=== PATIENT | male | born 1995 | race African-American/Black ===

== ENCOUNTER 2022-12-13 22:51 | Emergency (ER) | payer MEDICAID, OTHER ==
[~2022-12-13] VITALS: Ht 175.3 cm; Wt 99.8 kg
[2022-12-13 23:05] VITALS: BP 136/99
[2022-12-13] MEDS ORDERED: LACTATED RINGERS 1,000 ML IV ONE (23:30)
[2022-12-13] MEDS ORDERED: ONDANSETRON 4 MG/2 ML (SDV) Z0FRAN IVP ONE (23:30)
[2022-12-13 23:38] LABS: BASOPHILS # (AUTO) 0.1 10^3/uL (0.0-0.1); BASOPHILS % (AUTO) 1 % (0-10); EOSINOPHILS # (AUTO) 0.2 10^3/uL (0.0-0.3); EOSINOPHILS % (AUTO) 2 % (0-10); HEMATOCRIT 47 % (40-54); HEMOGLOBIN 16.2 g/dL (13.3-17.7); LYMPHOCYTES # (AUTO) 2.6 10^3/uL (1.0-4.0); LYMPHOCYTES % (AUTO) 23 % (12-44); MEAN CORPUSCULAR HEMOGLOBIN 30 pg (25-34); MEAN CORPUSCULAR HGB CONC 35 g/dL (32-36); MEAN CORPUSCULAR VOLUME 86 fL (80-99); MEAN PLATELET VOLUME 10.1 fL (9.0-12.2); MONOCYTES # (AUTO) 0.6 10^3/uL (0.0-1.0); MONOCYTES % (AUTO) 6 % (0-12); NEUTROPHILS # (AUTO) 7.8 10^3/uL (1.8-7.8); NEUTROPHILS % (AUTO) 68 % (42-75); PLATELET COUNT 270 10^3/uL (130-400); WHITE BLOOD COUNT 11.3 10^3/uL (4.3-11.0)
[2022-12-13 23:53] LABS: ALBUMIN 4.6 GM/DL (3.2-4.5); CHLORIDE 106 MMOL/L (98-107); SODIUM 140 MMOL/L (135-145)
[2022-12-13 23:54] LABS: CALCIUM 9.7 MG/DL (8.5-10.1)
[2022-12-13 23:55] LABS: GLUCOSE 103 MG/DL (70-105); TOTAL PROTEIN 7.7 GM/DL (6.4-8.2)
[2022-12-13 23:56] LABS: CARBON DIOXIDE 21 MMOL/L (21-32)
[2022-12-13 23:57] LABS: BILIRUBIN,TOTAL 0.4 MG/DL (0.1-1.0)
[2022-12-13 23:59] LABS: ALKALINE PHOSPHATASE 63 U/L (40-136); CREATININE SERUM 1.02 MG/DL (0.60-1.30); GFR ESTIMATED 102
[2022-12-14] LABS: BUN/CREATININE RATIO 14
[2022-12-14 00:02] LABS: ALANINE AMINOTRANSFERASE 66 U/L (0-55)
[2022-12-14 00:03] LABS: MAGNESIUM 1.7 MG/DL (1.6-2.4)
[2022-12-14 00:04] LABS: LIPASE 19 U/L (8-78)
== END 2022-12-14 01:20 | disposition left against medical advice (07) ==
LOC: ER 22:54
DX: R10.9 Unspecified abdominal pain (principal); R11.10 Vomiting, unspecified
CPT/HCPCS: 36415; 80053; 83690; 83735; 85025

== ENCOUNTER 2023-03-30 03:43 | Emergency (ER) | payer MEDICAID ==
[2023-03-30] MEDS ORDERED: NS IV 1000 ML 1,000 ML IV STA (04:13)
[2023-03-30] MEDS ORDERED: fentaNYL INJECTION 100 MCG/2 ML VIAL IVP STA (04:13)
[2023-03-30] MEDS ORDERED: PANTOPRAZOLE INJECTION 40 MG VIAL IV ONE (04:15)
[2023-03-30] MEDS ORDERED: ONDANSETRON INJECTION 4 MG/2 ML (SDV) IVP ONE (04:15)
--- NOTE | 2023-03-30 04:18 | ED Abdominal Pain ---
General Chief Complaint: Abdominal/GI Problems Stated Complaint: VOMITING Source of Information: Patient Exam Limitations: No Limitations (MIGUELITO PEPPER MD) History of Present Illness Date Seen by Provider: Mar 30, 2023 Time Seen by Provider: 04:04 Initial Comments Here with report of nausea and vomiting after eating [employer] tonight. Has history of similar in the past and usually gets some Zofran and maybe some pain medicines or IV fluid and usually does better. He has moved here from [place]. Significant other reports that he had some swelling in his abdomen tonight that he typically gets but she actually noticed it tonight. He reports epigastric pain. He has yellow clear fluid that he is vomiting about every 5 to 10 minutes. He does drink occasionally and smokes cigarettes and occasionally smokes marijuana. Denies any significant allergies. Started 11 PM Timing/Duration: 4-6 Hours Severity/Quality: Moderate Location: Epigastric Radiation: No Radiation Activities at Onset: Rest Modifying Factors: Worsens With Eating Associated Symptoms: No Back Pain, No Chest Pain, No Fever/Chills; Nausea/Vomiting, Swelling/Mass in Abdomen; No Weakness (MIGUELITO PEPPER MD) Allergies and Home Medications Allergies Coded Allergies: No Known Drug Allergies (Unverified , 12/13/22) Patient Home Medication List Home Medication List Reviewed: Yes (MIGUELITO PEPPER MD) Omeprazole (Omeprazole) 20 Mg Capsule.dr, 20 MG PO DAILY Prescribed by: MIGUELITO PEPPER on 03/30/23 0608 Ondansetron (Ondansetron Odt) 4 Mg Tab.rapdis, 4 MG PO Q6H PRN for NAUSEA/VOMITING Prescribed by: MIGUELITO PEPPER on 03/30/23 0608 Review of Systems Review of Systems Constitutional: see HPI; No chills, No fever EENTM: No Symptoms Reported Respiratory: Denies Cough, Denies Shortness of Air Cardiovascular: Denies Chest Pain Gastrointestinal: Abdominal Pain, Nausea, Vomiting Musculoskeletal: no symptoms reported Psychiatric/Neurological: No Symptoms Reported (MIGUELITO PEPPER MD) Past Keoqhoi-Hpgoxq-Gjzipz Hx Patient Social History Tobacco Use?: Yes Tobacco type used: Cigarettes Substance use?: Yes Substance type: Marijuana Alcohol Use?: Yes (MIGUELITO PEPPER MD) Immunizations Up To Date First/Initial COVID19 Vaccinat: NA (MIGUELITO PEPPER MD) Past Medical History Surgery/Hospitalization HX: ASTHMA, STOMACH ULCER, THROAT SX. (MIGUELITO PEPPER MD) Physical Exam Vital Signs Vital Signs - First Documented 03/30/23 03:57 Temp 36.0 Pulse 84 Resp 16 B/P (MAP) 147/103 (118) Pulse Ox 93 O2 Delivery Room Air (SHARYN GARDNER MD) Vital Signs Capillary Refill : (MIGUELITO PEPPER MD) Height/Weight/BMI Height: '" Weight: lbs. oz. kg; 32.00 BMI Method: General Appearance: WD/WN, no apparent distress HEENT: PERRL/EOMI, pharynx normal Neck: full range of motion, supple Respiratory: lungs clear, normal breath sounds Cardiovascular: regular rate, rhythm, no murmur Gastrointestinal: non tender, soft, other (No obvious mass or swelling noted on exam) Back: normal inspection, no CVA tenderness, no vertebral tenderness Neurologic/Psychiatric: alert, oriented x 3 Skin: normal color, warm/dry (MIGUELITO PEPPER MD) Progress/Results/Core Measures Results/Orders Lab Results Laboratory Tests Test 03/30/23 05:13 03/30/23 05:47 Range/Units Sodium Level 141 135-145 MMOL/L Potassium Level 4.5 3.6-5.0 MMOL/L Chloride Level 111 H 98-107 MMOL/L Carbon Dioxide Level 17 L 21-32 MMOL/L Anion Gap 13 5-14 MMOL/L Blood Urea Nitrogen 9 7-18 MG/DL Creatinine 1.09 0.60-1.30 MG/DL Estimat Glomerular Filtration Rate 94 BUN/Creatinine Ratio 8 Glucose Level 108 H 70-105 MG/DL Calcium Level 9.0 8.5-10.1 MG/DL Corrected Calcium 8.8 8.5-10.1 MG/DL Total Bilirubin 0.4 0.1-1.0 MG/DL Aspartate Amino Transf (AST/SGOT) 58 H 5-34 U/L Alanine Aminotransferase (ALT/SGPT) 101 H 0-55 U/L Alkaline Phosphatase 58 40-136 U/L Total Protein 7.7 6.4-8.2 GM/DL Albumin 4.3 3.2-4.5 GM/DL Lipase 26 8-78 U/L White Blood Count 7.0 4.3-11.0 10^3/uL Red Blood Count 5.26 4.30-5.52 10^6/uL Hemoglobin 14.8 13.3-17.7 g/dL Hematocrit 45 40-54 % Mean Corpuscular Volume 85 80-99 fL Mean Corpuscular Hemoglobin 28 25-34 pg Mean Corpuscular Hemoglobin Concent 33 32-36 g/dL Red Cell Distribution Width 13.8 10.0-14.5 % Platelet Count 222 130-400 10^3/uL Mean Platelet Volume 10.9 9.0-12.2 fL Immature Granulocyte % (Auto) 0 % Neutrophils (%) (Auto) 71 42-75 % Lymphocytes (%) (Auto) 22 12-44 % Monocytes (%) (Auto) 5 0-12 % Eosinophils (%) (Auto) 1 0-10 % Basophils (%) (Auto) 1 0-10 % Neutrophils # (Auto) 5.0 1.8-7.8 10^3/uL Lymphocytes # (Auto) 1.6 1.0-4.0 10^3/uL Monocytes # (Auto) 0.4 0.0-1.0 10^3/uL Eosinophils # (Auto) 0.1 0.0-0.3 10^3/uL Basophils # (Auto) 0.1 0.0-0.1 10^3/uL Immature Granulocyte # (Auto) 0.0 0.0-0.1 10^3/uL (SHARYN GARDNER MD) Medications Given in ED Current Medications Medications Dose Ordered Sig/Alli Route Start Time Stop Time Status Last Admin Dose Admin Ondansetron HCl 4 mg ONCE ONCE IVP 03/30/23 04:15 03/30/23 04:16 DC 03/30/23 04:39 4 MG Pantoprazole 40 mg ONCE ONCE IV 03/30/23 04:15 03/30/23 04:16 DC 03/30/23 04:39 40 MG (SHARYN GARDNER MD) Vital Signs/I&O 03/30/23 03:57 Temp 36.0 Pulse 84 Resp 16 B/P (MAP) 147/103 (118) Pulse Ox 93 O2 Delivery Room Air (SHARYN GARNDER MD) Progress Progress Note : Progress Note Seen and evaluated. IV, labs including CBC, CMP and lipase ordered. Normal saline 1 L bolus. Zofran 4 mg IV, fentanyl 50 mcg IV and Protonix 40 mg IV ordered. Monitor patient. Differential diagnosis includes electrolyte abnormality, dehydration, pancreatitis, gastritis 0555: CBC resulted and shows critically low platelets and potassium is elevated as well but the patient was a very hard IV stick and required multiple draw attempts to get blood and they ultimately got blood in a pediatric tube. I do believe this is hemolysis and clumping. I was able to redraw blood via ultrasound and we will recheck platelets and potassium and if they are better p atient can be safely discharged home. He is feeling much better currently. (MIGUELITO PEPPER MD) Progress Note : Time: 06:19 Progress Note I have reviewed repeat labs - Platelet count is normal as is potassium. Will discharge patient with Dr Kevin's instructions. (SHARYN GARDNER MD) Departure Impression Primary Impression: Nausea and vomiting Qualified Codes: R11.2 - Nausea with vomiting, unspecified Disposition: 01 HOME, SELF-CARE Condition: Improved Departure-Patient Inst. Decision time for Depature: 06:19 (SHARYN GARDNER MD) Referrals: NO,LOCAL PHYSICIAN (PCP/Family) Primary Care Physician Patient Instructions: Gastritis (DC), Nausea and Vomiting, Adult Add. Discharge Instructions: All discharge instructions reviewed with patient and/or family. Voiced understanding. Take medications as directed. Follow-up with your doctor for recheck and further evaluation. You should also seek referral for upper endoscopy (scope) to evaluate your stomach. You may follow-up with the surgeon listed or of your choosing or through referral. Return for worse pain, fever, vomiting, weakness, breathing problems or other concerns as needed. Scripts Omeprazole (Omeprazole) 20 Mg Capsule. 20 MG PO DAILY for 30 Days, #30 CAP 1 Refill Prov: MIGUELITO PEPPER MD 03/30/23 Ondansetron (Ondansetron Odt) 4 Mg Tab.rapdis 4 MG PO Q6H PRN for NAUSEA/VOMITING, #12 TAB 0 Refills Prov: MIGUELITO PEPPER MD 03/30/23 MIGUELITO PEPPER MD Mar 30, 2023 04:18 SHARYN GARDNER MD Mar 30, 2023 06:19
[2023-03-30 05:46] LABS: ALBUMIN 4.3 GM/DL (3.2-4.5)
[2023-03-30 05:48] LABS: TOTAL PROTEIN 7.7 GM/DL (6.4-8.2)
[2023-03-30 05:50] LABS: BILIRUBIN,TOTAL 0.4 MG/DL (0.1-1.0)
[2023-03-30 05:52] LABS: CREATININE SERUM 1.09 MG/DL (0.60-1.30)
[2023-03-30] MEDS ORDERED: ONDA4TAB11 PO (06:08)
[2023-03-30] MEDS ORDERED: OMEP20CA18 PO (06:08)
[2023-03-30 06:09] LABS: BASOPHILS # (AUTO) 0.1 10^3/uL (0.0-0.1); BASOPHILS % (AUTO) 1 % (0-10); EOSINOPHILS # (AUTO) 0.1 10^3/uL (0.0-0.3); EOSINOPHILS % (AUTO) 1 % (0-10); HEMATOCRIT 45 % (40-54); HEMOGLOBIN 14.8 g/dL (13.3-17.7); LYMPHOCYTES # (AUTO) 1.6 10^3/uL (1.0-4.0); LYMPHOCYTES % (AUTO) 22 % (12-44); MEAN CORPUSCULAR HEMOGLOBIN 28 pg (25-34); MEAN CORPUSCULAR HGB CONC 33 g/dL (32-36); MEAN CORPUSCULAR VOLUME 85 fL (80-99); MEAN PLATELET VOLUME 10.9 fL (9.0-12.2); MONOCYTES # (AUTO) 0.4 10^3/uL (0.0-1.0); MONOCYTES % (AUTO) 5 % (0-12); NEUTROPHILS % (AUTO) 71 % (42-75); PLATELET COUNT 222 10^3/uL (130-400)
[2023-03-30 06:15] LABS: POTASSIUM 4.5 MMOL/L (3.6-5.0)
[2023-03-30 06:36] VITALS: BP 136/89
== END 2023-03-30 06:36 | disposition home or self-care (01) ==
LOC: EDUNIT# 03:43 → ER 03:45
DX: R11.2 Nausea with vomiting, unspecified (principal); F17.210 Nicotine dependence, cigarettes, uncomplicated; Z28.310 Unvaccinated for COVID-19
CPT/HCPCS: 36415; 80053; 83690; 85025

== ENCOUNTER 2023-04-10 10:30 | Emergency (ER) | payer MEDICAID ==
[~2023-04-10] VITALS: Ht 175.2 cm; Wt 110.0 kg
[~2023-04-10 10:30] MED LIST: OMEP20CA18 PO; ONDA4TAB11 PO
[2023-04-10] MEDS ORDERED: LIDOCAINE 2% VISCOUS 15 ML UDC PO ONE (10:45)
[2023-04-10] MEDS ORDERED: KETOROLAC INJ 15 MG/ML VIAL IVP ONE (10:45)
[2023-04-10] MEDS ORDERED: FAMOTIDINE 20 MG TABLET PO STA (10:45)
[2023-04-10] MEDS ORDERED: ANTACID SUSPENSION 30 ML UDC PO ONE (10:45)
--- NOTE | 2023-04-10 10:48 | ED Cardiac General ---
History of Present Illness General Chief Complaint: Chest Pain Stated Complaint: CHEST PAINS | SOB Source: patient Exam Limitations: no limitations History of Present Illness Date Seen by Provider: Apr 10, 2023 Time Seen by Provider: 10:39 Initial Comments 27-year-old male with past medical history of asthma coming in due to left-sided chest wall pain. Its been ongoing constant for roughly 4 hours. It is sharp, worse with a deep breath, nothing really seems to make it better or worse. He has not taken anything for it as of yet. He denies any personal cardiac history, no lower extremity swelling or pain, no history of DVT or PE, no recent surgery, no recent long travel, no family history of blood clots, no family history of early cardiac . Otherwise denying any shortness of breath, wheezing, fever, cough, n/v/d, or any other concerns Allergies and Home Medications Allergies Coded Allergies: No Known Drug Allergies (Unverified , 12/13/22) Patient Home Medication List Home Medication List Reviewed: Yes Omeprazole (Omeprazole) 20 Mg Capsule.dr, 20 MG PO DAILY Prescribed by: MIGUELITO PEPPER on 03/30/23607 Ondansetron (Ondansetron Odt) 4 Mg Tab.rapdis, 4 MG PO Q6H PRN for NAUSEA/V OMITING Prescribed by: MIGUELITO PEPPER on 03/30/23607 Review of Systems Review of Systems Constitutional: No fever EENTM: No Symptoms Reported Respiratory: No Symptoms Reported Cardiovascular: See HPI Gastrointestinal: No Symptoms Reported Genitourinary: No Symptoms Reported Musculoskeletal: no symptoms reported Skin: no symptoms reported Psychiatric/Neurological: No Symptoms Reported Endocrine: No Symptoms Reported Hematologic/Lymphatic: No Symptoms Reported Past Ecblmfl-Tzoxfs-Lntcmp Hx Patient Social History Tobacco Use?: Yes Immunizations Up To Date First/Initial COVID19 Vaccinat: NA Second COVID19 Vaccination Pardeep: NA Third COVID19 Vaccination Date: NA Past Medical History Surgery/Hospitalization HX: ASTHMA, STOMACH ULCER, THROAT SX. Physical Exam Vital Signs Vital Signs - First Documented 04/10/23 10:35 Temp 37.6 Pulse 101 Resp 18 B/P (MAP) 169/109 (129) Pulse Ox 100 Capillary Refill : Height, Weight, BMI Height: '" Weight: lbs. oz. kg; 32.00 BMI Method: General Appearance: No Apparent Distress, WD/WN HEENT: PERRL/EOMI, Normal ENT Inspection, Pharynx Normal Neck: Full Range of Motion, Normal Inspection, Non Tender, Supple Respiratory: Chest Non Tender, Lungs Clear, Normal Breath Sounds, No Accessory Muscle Use, No Respiratory Distress Cardiovascular: Regular Rate, Rhythm, No Edema, Normal Peripheral Pulses Gastrointestinal: Normal Bowel Sounds, Non Tender, Soft; No Distended, No Guarding Extremity: Normal Capillary Refill, Normal Inspection, Normal Range of Motion, Non Tender, No Calf Tenderness, No Pedal Edema Neurologic/Psychiatric: Alert, No Motor/Sensory Deficits, Normal Mood/Affect Skin: Normal Color, Warm/Dry Progress/Results/Core Measures Results/Orders Lab Results Laboratory Tests Test 04/10/23 10:40 Range/Units White Blood Count 9.3 4.3-11.0 10^3/uL Red Blood Count 5.26 4.30-5.52 10^6/uL Hemoglobin 14.6 13.3-17.7 g/dL Hematocrit 44 40-54 % Mean Corpuscular Volume 84 80-99 fL Mean Corpuscular Hemoglobin 28 25-34 pg Mean Corpuscular Hemoglobin Concent 33 32-36 g/dL Red Cell Distribution Width 14.1 10.0-14.5 % Platelet Count 237 130-400 10^3/uL Mean Platelet Volume 10.8 9.0-12.2 fL Immature Granulocyte % (Auto) 0 % Neutrophils (%) (Auto) 53 42-75 % Lymphocytes (%) (Auto) 36 12-44 % Monocytes (%) (Auto) 8 0-12 % Eosinophils (%) (Auto) 2 0-10 % Basophils (%) (Auto) 1 0-10 % Neutrophils # (Auto) 5.0 1.8-7.8 10^3/uL Lymphocytes # (Auto) 3.4 1.0-4.0 10^3/uL Monocytes # (Auto) 0.7 0.0-1.0 10^3/uL Eosinophils # (Auto) 0.2 0.0-0.3 10^3/uL Basophils # (Auto) 0.1 0.0-0.1 10^3/uL Immature Granulocyte # (Auto) 0.0 0.0-0.1 10^3/uL Prothrombin Time 13.1 12.2-14.7 SEC INR Comment 1.0 0.8-1.4 Activated Partial Thromboplast Time 27 24-35 SEC Sodium Level 136 135-145 MMOL/L Potassium Level 4.0 3.6-5.0 MMOL/L Chloride Level 104 98-107 MMOL/L Carbon Dioxide Level 23 21-32 MMOL/L Anion Gap 9 5-14 MMOL/L Blood Urea Nitrogen 12 7-18 MG/DL Creatinine 1.27 0.60-1.30 MG/DL Estimat Glomerular Filtration Rate 78 BUN/Creatinine Ratio 9 Glucose Level 94 70-105 MG/DL Calcium Level 9.5 8.5-10.1 MG/DL Corrected Calcium 9.1 8.5-10.1 MG/DL Magnesium Level 1.7 1.6-2.4 MG/DL Total Bilirubin 0.6 0.1-1.0 MG/DL Aspartate Amino Transf (AST/SGOT) 52 H 5-34 U/L Alanine Aminotransferase (ALT/SGPT) 86 H 0-55 U/L Alkaline Phosphatase 64 40-136 U/L Troponin I < 0.028 <0.028 NG/ML Total Protein 7.7 6.4-8.2 GM/DL Albumin 4.5 3.2-4.5 GM/DL Lipase 21 8-78 U/L My Orders Orders - MIYA CLARK MD Ekg Tracing (04/10/23 10:37) Cbc And Automated Diff (04/10/23 10:45) Magnesium (04/10/23 10:45) Chest 1 View, Ap/Pa Only (04/10/23 10:45) Comprehensive Metabolic Panel (04/10/23 10:45) Protime With Inr (04/10/23 10:45) Partial Thromboplastin Time (04/10/23 10:45) O2 (04/10/23 10:45) Monitor-Rhythm Ecg Trace Only (04/10/23 10:45) Ed Iv/Invasive Line Start (04/10/23 10:45) Lipase (04/10/23 10:45) Troponin I [place] (04/10/23 10:45) Ketorolac Injection (Ketorolac Injection (04/10/23 10:45) Lidocaine 2% Viscous 15 Ml (Xylocaine Vi (04/10/23 10:45) Famotidine Tablet (Famotidine Tablet) (04/10/23 10:45) Antacid Suspension (Antacid Suspension (04/10/23 10:45) Medications Given in ED Current Medications Medications Dose Ordered Sig/Alli Route Start Time Stop Time Status Last Admin Dose Admin Al Hydrox/Mg Hydrox/Simethicone 30 ml ONCE ONCE PO 04/10/23 10:45 04/10/23 10:48 DC 04/10/23 11:00 30 ML Ketorolac Tromethamine 15 mg ONCE ONCE IVP 04/10/23 10:45 04/10/23 10:47 DC 04/10/23 11:00 15 MG Lidocaine HCl 15 ml ONCE ONCE PO 04/10/23 10:45 04/10/23 10:48 DC 04/10/23 11:00 15 ML Vital Signs/I&O 04/10/23 10:35 Temp 37.6 Pulse 101 Resp 18 B/P (MAP) 169/109 (129) Pulse Ox 100 Progress Progress Note : Progress Note 27-year-old male coming in due to 4 hours of chest pain. ABCs were intact and vitals were stable on presentation. Physical exam reassuring including clear l heath sounds, normal heart sounds, and he is overall well-appearing. EKG ordered and interpreted by me showing no acute ischemic changes. He is low risk for PE per [place] criteria and is PERC negative. He would be low risk for ACS given age and lack of risk factors, an IV was placed and basic labs were obtained including cardiac biomarkers. His troponin is negative making ACS even less likely. I did a [id number] ultrasound showing no pericardial effusion. Chest x-ray ordered and interpreted by me showing no pneumothorax, no pneumonia, normal cardiac silhouette. Patient received Toradol and a GI cocktail. I believe he stable for discharge with outpatient follow-up. He was sent home with strict return precautions. Initial ECG Impression Date: Apr 10, 2023 Initial ECG Impression Time: 10:39 Initial ECG Rate: 93 Initial ECG Rhythm: Normal Sinus Comment Narrow QRS, normal axis, no significant ST changes or T wave abnormality Diagnostic Imaging Diagonstic Imaging: Xray (chest) Comments [facility], [place] NAME: JEFFERSONKRISTEL MED REC#: [id number] PT STATUS: REG ER : 1995 PHYSICIAN: MIYA CLRAK MD ADMIT DATE: 04/10/23/ER Draft Date of Exam:04/10/23 CHEST 1 VIEW, AP/PA ONLY EXAMINATION: Chest 1 view HISTORY: Chest pain COMPARISON: None available. FINDINGS: The lungs are clear without edema or pneumonia. No pleural effusion or pneumothorax. Heart size is normal. IMPRESSION: 1. Clear lungs. Dictated on workstation # [id number] Dict: 04/10/23 1122 Trans: 04/10/23 1124 [id number] Interpreted by: SANTIAGO WHITNEY MD Electronically signed by: Departure Impression Primary Impression: Chest wall pain Disposition: HOME, SELF-CARE Condition: Stable Departure-Patient Inst. Decision time for Depature: 11:50 Referrals: NO,LOCAL PHYSICIAN (PCP/Family) Primary Care Physician Patient Instructions: Chest Pain That Is Not Caused by the Heart (DC) Add. Discharge Instructions: We are not seeing any evidence of heart attack or anything that would be life- threatening. This is likely musculoskeletal related. We recommend following up with your regular doctor if this is not getting better in the next week or so. We recommend taking ibuprofen as needed for pain. If it ever develops a burning quality to it, consider taking Maalox and [id number] Pepcid. Work/School Note: Work Release Form Date Seen in the Emergency Department: Apr 10, 2023 Return to Work: Apr 11, 2023 Restrictions: No Restrictions MIYA CLARK MD Apr 10, 2023 10:48
[2023-04-10 10:52] LABS: BASOPHILS # (AUTO) 0.1 10^3/uL (0.0-0.1); BASOPHILS % (AUTO) 1 % (0-10); EOSINOPHILS # (AUTO) 0.2 10^3/uL (0.0-0.3); EOSINOPHILS % (AUTO) 2 % (0-10); HEMATOCRIT 44 % (40-54); HEMOGLOBIN 14.6 g/dL (13.3-17.7); LYMPHOCYTES # (AUTO) 3.4 10^3/uL (1.0-4.0); LYMPHOCYTES % (AUTO) 36 % (12-44); MEAN CORPUSCULAR HEMOGLOBIN 28 pg (25-34); MEAN CORPUSCULAR HGB CONC 33 g/dL (32-36); MEAN CORPUSCULAR VOLUME 84 fL (80-99); MEAN PLATELET VOLUME 10.8 fL (9.0-12.2); MONOCYTES # (AUTO) 0.7 10^3/uL (0.0-1.0); MONOCYTES % (AUTO) 8 % (0-12); NEUTROPHILS % (AUTO) 53 % (42-75); PLATELET COUNT 237 10^3/uL (130-400); WHITE BLOOD COUNT 9.3 10^3/uL (4.3-11.0)
[2023-04-10 11:13] LABS: ALBUMIN 4.5 GM/DL (3.2-4.5); PROTHROMBIN TIME PATIENT 13.1 SEC (12.2-14.7)
[2023-04-10 11:14] LABS: CHLORIDE 104 MMOL/L (98-107); SODIUM 136 MMOL/L (135-145)
[2023-04-10 11:15] LABS: CALCIUM 9.5 MG/DL (8.5-10.1)
[2023-04-10 11:16] LABS: GLUCOSE 94 MG/DL (70-105); TOTAL PROTEIN 7.7 GM/DL (6.4-8.2)
[2023-04-10 11:17] LABS: CARBON DIOXIDE 23 MMOL/L (21-32)
[2023-04-10 11:18] LABS: BILIRUBIN,TOTAL 0.6 MG/DL (0.1-1.0)
[2023-04-10 11:19] LABS: ALKALINE PHOSPHATASE 64 U/L (40-136)
[2023-04-10 11:20] LABS: CREATININE SERUM 1.27 MG/DL (0.60-1.30); GFR ESTIMATED 78
[2023-04-10 11:21] LABS: BUN/CREATININE RATIO 9
[2023-04-10 11:22] LABS: ALANINE AMINOTRANSFERASE 86 U/L (0-55); MAGNESIUM 1.7 MG/DL (1.6-2.4)
[2023-04-10 11:23] LABS: LIPASE 21 U/L (8-78)
--- NOTE | 2023-04-10 11:25 | Diagnostic Imaging Report ---
EXAMINATION: Chest 1 view HISTORY: Chest pain COMPARISON: None available. FINDINGS: The lungs are clear without edema or pneumonia. No pleural effusion or pneumothorax. Heart size is normal. IMPRESSION: 1. Clear lungs. Dictated by: Dictated on workstation # [id number]
[2023-04-10 11:38] VITALS: BP 138/87
== END 2023-04-10 11:53 | disposition home or self-care (01) ==
LOC: EDUNIT# 10:30 → ER 10:32
DX: R07.89 Other chest pain (principal)
CPT/HCPCS: 36415; 71045; 80053; 83690; 83735; 84484; 85025; 85610; 85730; 93005; 93041

== ENCOUNTER 2023-04-22 00:04 | Emergency (ER) | payer MEDICAID ==
[~2023-04-22] VITALS: Ht 175.3 cm; Wt 113.6 kg
[2023-04-22] MEDS ORDERED: LACTATED RINGERS 1,000 ML 1,000 ML IV ONE ×2 (00:15→01:15)
[2023-04-22] MEDS ORDERED: ONDANSETRON INJECTION 4 MG/2 ML (SDV) IVP ONE ×2 (00:15→01:00)
--- NOTE | 2023-04-22 00:22 | ED GI ---
General Stated Complaint: VOMITING Source of Information: Patient, Old Records, Other (FEMALE S.O. TALKS NON-STOP AND DOES ALL TALKING FOR PT) History of Present Illness Date Seen by Provider: Apr 22, 2023 Time Seen by Provider: 00:12 Initial Comments PT ARRIVES VIA POV FROM HOME WITH FEMALE S.O. C/O NAUSEA AND VOMITING THAT BEGAN AROUND 2200 TONIGHT HE FELT FINE ALL DAY, ATE DINNER AT 1800--RIBS AND MASHED POTATOES NO SICK CONTACTS OR SUSPICIOUS FOODS NO DIARRHEA NO ABDOMINAL PAIN NO FEVER NO URINARY SYMPTOMS S.O. MADE HIM EAT APPLESAUCE AFTER HE STARTED VOMITING, AND HE HAS CONTINUED TO DRINK WATER CONSTANTLY SINCE HE STARTED VOMITING. THIS IS A FREQUENT PROBLEM PT IS FROM [place], BUT JUST CAME HERE FROM [place], AND THIS IS HIS 3RD VISIT HERE THIS MONTH. STATES THEY WERE JUST VISITING HERE, BUT NOW HAVE MOVED HERE FOR THE TIME BEING. HE HAS HISTORY OF ASTHMA AND USES ALBUTEROL INHALER ON DAILY BASIS. HE IS NOT HAVING ANY RESPIRATORY SYMPTOMS TODAY NO PRIOR ABDOMINAL SURGERIES NOT ON ANY GI MEDICATIONS PT SMOKES CIGARETTES, OCCASIONAL ETOH, AND SMOKES MARIJUANA HE DRANK 1/2 PINT OF HARD LIQUOR TODAY, LAST USED MARIJUANA YESTERDAY PCP: NONE Allergies and Home Medications Allergies Coded Allergies: No Known Drug Allergies (Unverified , 12/13/22) Patient Home Medication List Home Medication List Reviewed: Yes Omeprazole (Omeprazole) 20 Mg Capsule., 20 MG PO DAILY Prescribed by: MIGUELITO PEPPER on 03/30/23607 Ondansetron (Ondansetron Odt) 4 Mg Tab.rapdis, 4 MG PO Q6H PRN for N AUSEA/VOMITING Prescribed by: MIGUELITO PEPPER on 03/30/23 06 Ondansetron (Ondansetron Odt) 8 Mg Tab.rapdis, 8 MG PO Q6H Prescribed by: TARYN STODDARD on 04/22/23141 Pantoprazole Sodium (Protonix) 40 Mg Tablet., 40 MG PO DAILY Prescribed by: TARYN STODDARD on 04/22/23141 Sucralfate (Carafate) 1 Gram Tablet, 1 GM PO QID Prescribed by: TARYN STODDARD on 04/22/23141 Review of Systems Review of Systems Constitutional: no symptoms reported Respiratory: No Symptoms Reported Cardiovascular: No Symptoms Reported Gastrointestinal: See HPI; Denies Abdominal Pain, Denies Diarrhea; Nausea, Vomiting Genitourinary: No Symptoms Reported Musculoskeletal: no symptoms reported Skin: no symptoms reported Psychiatric/Neurological: No Symptoms Reported Endocrine: No Symptoms Reported Hematologic/Lymphatic: No Symptoms Reported Past Bsmsjmb-Otwfzs-Zlevhm Hx Patient Social History Tobacco Use?: Yes Tobacco type used: Cigarettes Smoking Status: Current Everyday Smoker Substance use?: Yes Substance type: Amphetamines, Methamphetamine, Marijuana Additional substance use comme: UDS + FOR METH/AMPHETAMINES AND THC 04/22/23 Alcohol Use?: Yes Alcohol Frequency: Couple times a week Immunizations Up To Date First/Initial COVID19 Vaccinat: NA Second COVID19 Vaccination Pardeep: NA Third COVID19 Vaccination Date: NA Past Medical History Surgery/Hospitalization HX: ASTHMA, STOMACH ULCER, THROAT SX. Surgeries: Yes Respiratory: Yes Asthma Cardiac: No Neurological: No Genitourinary: No Gastrointestinal: Yes (CHRONIC NAUSEA/VOMITING) Musculoskeletal: No Endocrine: No HEENT: No Cancer: No Psychosocial: No Integumentary: No Blood Disorders: No Family Medical History SOCIAL HISTORY; -SMOKES 1 PPD -ETOH FREQUENT USE. -DRUGS--SMOKES MARIJUANA ON REGULAR BASIS; UDS + FOR AMPHETAMINES AND METHAMPHETAMINES WELL MARIJUANA 04/22/23 Physical Exam Vital Signs Vital Signs - First Documented 04/22/23 04/22/23 00:13 01:53 Temp 36.4 Pulse 84 Resp 16 B/P (MAP) 149/122 (131) Pulse Ox 95 O2 Delivery Room Air Capillary Refill : Height/Weight/BMI Height: '" Weight: lbs. oz. kg; 35.00 BMI Method: General Appearance: WD/WN, no apparent distress, other (HARSH, DRY HEAVING AND VOMITING SMALL AMOUNTS OF CLEAR LIQUIDS ON ARRIVAL. KEEPS EYES CLOSED AT ALL TIMES) Neck: normal inspection Respiratory: normal breath sounds, no respiratory distress, no accessory muscle use Cardiovascular: regular rate, rhythm, no edema, no JVD, no murmur Peripheral Pulses: 0 Carotid (R), 0 Carotid (L), 0 Femoral (R), 0 Femoral (L), 0 Dorsalis Pedis (R), 0 Left Dors-Pedis (L), 0 Radial Pulses (R), 0 Radial Pulses (L) Gastrointestinal: normal bowel sounds, soft, tenderness (MILD DIFFUSE TENDERNESS) Extremities: normal inspection, normal capillary refill Back: no CVA tenderness Neurologic/Psychiatric: no motor/sensory deficits, alert, oriented x 3 Skin: normal color (PT IS BLACK), warm/dry, tattoos/piercings (MULTIPLE TATTOOS) Progress/Results/Core Measures Results/Orders Lab Results Laboratory Tests Test 04/22/23 00:20 04/22/23 00:45 04/22/23 01:37 Range/Units White Blood Count 9.1 4.3-11.0 10^3/uL Red Blood Count 5.61 H 4.30-5.52 10^6/uL Hemoglobin 15.4 13.3-17.7 g/dL Hematocrit 46 40-54 % Mean Corpuscular Volume 83 80-99 fL Mean Corpuscular Hemoglobin 28 25-34 pg Mean Corpuscular Hemoglobin Concent 33 32-36 g/dL Red Cell Distribution Width 13.7 10.0-14.5 % Platelet Count 258 130-400 10^3/uL Mean Platelet Volume 10.7 9.0-12.2 fL Immature Granulocyte % (Auto) 0 % Neutrophils (%) (Auto) 55 42-75 % Lymphocytes (%) (Auto) 37 12-44 % Monocytes (%) (Auto) 5 0-12 % Eosinophils (%) (Auto) 1 0-10 % Basophils (%) (Auto) 1 0-10 % Neutrophils # (Auto) 5.0 1.8-7.8 10^3/uL Lymphocytes # (Auto) 3.4 1.0-4.0 10^3/uL Monocytes # (Auto) 0.5 0.0-1.0 10^3/uL Eosinophils # (Auto) 0.1 0.0-0.3 10^3/uL Basophils # (Auto) 0.1 0.0-0.1 10^3/uL Immature Granulocyte # (Auto) 0.0 0.0-0.1 10^3/uL Sodium Level 139 135-145 MMOL/L Potassium Level 4.1 3.6-5.0 MMOL/L Chloride Level 105 98-107 MMOL/L Carbon Dioxide Level 18 L 21-32 MMOL/L Anion Gap 16 H 5-14 MMOL/L Blood Urea Nitrogen 11 7-18 MG/DL Creatinine 1.08 0.60-1.30 MG/DL Estimat Glomerular Filtration Rate 95 BUN/Creatinine Ratio 10 Glucose Level 128 H 70-105 MG/DL Calcium Level 9.6 8.5-10.1 MG/DL Corrected Calcium 8.5-10.1 MG/DL Magnesium Level 1.7 1.6-2.4 MG/DL Total Bilirubin 0.3 0.1-1.0 MG/DL Aspartate Amino Transf (AST/SGOT) 48 H 5-34 U/L Alanine Aminotransferase (ALT/SGPT) 96 H 0-55 U/L Alkaline Phosphatase 72 40-136 U/L Total Protein 8.1 6.4-8.2 GM/DL Albumin 4.8 H 3.2-4.5 GM/DL Amylase Level 45 25-125 U/L Lipase 28 8-78 U/L Serum Alcohol 32 H <10 MG/DL Influenza Type A (RT-PCR) Not Detected Not Detecte Influenza Type B (RT-PCR) Not Detected Not Detecte SARS-CoV-2 RNA (RT-PCR) Not Detected Not Detecte Urine Color YELLOW Urine Clarity CLEAR Urine pH 6.5 5-9 Urine Specific [place] 1.015 L 1.016-1.022 Urine Protein TRACE NEGATIVE Urine Glucose (UA) NEGATIVE NEGATIVE Urine Ketones NEGATIVE NEGATIVE Urine Nitrite NEGATIVE NEGATIVE Urine Bilirubin NEGATIVE NEGATIVE Urine Urobilinogen 0.2 < = 1.0 MG/DL Urine Leukocyte Esterase NEGATIVE NEGATIVE Urine RBC (Auto) NEGATIVE NEGATIVE Urine RBC NONE /HPF Urine WBC RARE /HPF Urine Crystals NONE /LPF Urine Bacteria NEGATIVE /HPF Urine Casts NONE /LPF Urine Mucus NEGATIVE /LPF Urine Culture Indicated NO Urine Opiates Screen NEGATIVE NEGATIVE Urine Oxycodone Screen NEGATIVE NEGATIVE Urine Methadone Screen NEGATIVE NEGATIVE Urine Barbiturates Screen NEGATIVE NEGATIVE Ur Tricyclic Antidepressants Screen NEGATIVE NEGATIVE Urine Phencyclidine Screen NEGATIVE NEGATIVE Urine Amphetamines Screen POSITIVE H NEGATIVE Urine Methamphetamines Screen POSITIVE H NEGATIVE Urine Benzodiazepines Screen NEGATIVE NEGATIVE Urine Cocaine Screen NEGATIVE NEGATIVE Urine Cannabinoids Screen POSITIVE H NEGATIVE My Orders Orders - TARYN STODDARD DO Ed Iv/Invasive Line Start (04/22/23 00:12) Monitor-Rhythm Ecg Trace Only (04/22/23 00:12) Alcohol (04/22/23 00:12) Amylase (04/22/23 00:12) Cbc And Automated Diff (04/22/23 00:12) Comprehensive Metabolic Panel (04/22/23 00:12) Drug Screen Stat (Urine) (04/22/23 00:12) Lipase (04/22/23 00:12) Magnesium (04/22/23 00:12) Ua Culture If Indicated (04/22/23 00:12) Ed Iv/Invasive Line Start (04/22/23 00:12) Lactated Ringers 1,000 Ml (Lactated Ring (04/22/23 00:15) Ondansetron Injection (Ondansetron Inj (04/22/23 00:15) Covid 19 Inhouse Test (04/22/23 00:12) Influenza A And B By Pcr (04/22/23 00:12) Pantoprazole Injection (Pantoprazole Inj (04/22/23 00:30) Ct Abdomen/Pelvis W (04/22/23 00:28) Ondansetron Injection (Ondansetron Inj (04/22/23 01:00) Iohexol Injection (Omnipaque 350 Mg/Ml 1 (04/22/23 01:15) Received Contrast (Hold Metformin- Contr (04/22/23 01:15) Ns (Ivpb) 100 Ml (Sodium Chloride 0.9% 1 (04/22/23 01:15) Ed Iv/Invasive Line Start (04/22/23 01:03) Lactated Ringers 1,000 Ml (Lactated Ring (04/22/23 01:15) Medications Given in ED Current Medications Medications Dose Ordered Sig/Alli Route Start Time Stop Time Status Last Admin Dose Admin Iohexol 100 ml ONCE ONCE IV 04/22/23 01:15 04/22/23 01:16 DC 04/22/23 01:06 80 ML Lactated Ringer's 1,000 ml @ 0 mls/hr Q0M ONCE IV 04/22/23 00:15 04/22/23 00:16 DC 04/22/23 00:28 999 MLS/HR Lactated Ringer's 1,000 ml @ 0 mls/hr Q0M ONCE IV 04/22/23 01:15 04/22/23 01:16 DC 04/22/23 01:32 999 MLS/HR Ondansetron HCl 4 mg ONCE ONCE IVP 04/22/23 00:15 04/22/23 00:16 DC 04/22/23 00:26 4 MG Ondansetron HCl 8 mg ONCE ONCE IVP 04/22/23 01:00 04/22/23 01:01 DC 04/22/23 01:04 8 MG Pantoprazole 40 mg ONCE ONCE IV 04/22/23 00:30 04/22/23 00:31 DC 04/22/23 00:28 40 MG Sodium Chloride 100 ml ONCE ONCE IV 04/22/23 01:15 04/22/23 01:16 DC 04/22/23 01:07 78 ML Vital Signs/I&O 04/22/23 04/22/23 00:13 01:53 Temp 36.4 36.4 Pulse 84 97 Resp 16 16 B/P (MAP) 149/122 (131) 116/62 Pulse Ox 95 97 O2 Delivery Room Air Progress Progress Note : Progress Note VITALS ON ARRIVAL: TEMP 36.4=97.6, HR 84, RR 16, BP 149/122 ( PT VOMITING AT TIME OF BP READING), O2 SAT 95% ON ROOM AIR REPEAT BLOOD PRESSURES NORMAL GIVEN: -IV FLUIDS -ZOFRAN -PROTONIX LABS: -CBC NORMAL -CMP WITH NORMAL ELECTROLYTES, GLU 128, AST 48, ALT 96 -MG 1.7 -AMYLASE/LIPASE NORMAL -UA CLEAR -UDS + FOR AMPHETAMINES, METHAMPHETAMINES, THC -ETOH 32 -COVID/FLU NEGATIVE CT ABDOMEN/PELVIS UNREMARKABLE NO FURTHER VOMITING DURING ER STAY PT SITTING UP, EYES OPEN, LOOKS BETTER, STATES HE FEELS BETTER, AND NO LONGER HAS NAUSEA OR ABDOMINAL PAIN VITALS STABLE, AFEBRILE. DISCUSSED TEST RESULTS, ANTICIPATED COURSE, SYMPTOMATIC TREATMENT, DIET, MEDI CATIONS, NEED FOR FOLLOW UP --WILL REFER TO GENERAL SURGEON, AND RETURN PRECAUTIONS REVIEWED PRIOR ER RECORDS AT DISMISSAL, PT STATES HE IS GOING BACK HOME TO [place] IN [address] Diagnostic Imaging Comments CT ABDOMEN/PELVIS--PER [facility] VIA FAX AT [id number] -NO ACUTE PROCESS Reviewed: Reviewed by Me Departure Impression Primary Impression: Nausea and vomiting Additional Impressions: Alcohol use Marijuana use Methamphetamine use Disposition: HOME, SELF-CARE Condition: Improved Departure-Patient Inst. Decision time for Depature: 01:39 Referrals: KALYAN ARRINGTON BRETT D DO NO,LOCAL PHYSICIAN (PCP) Primary Care Physician Patient Instructions: Nausea and Vomiting, Adult Add. Discharge Instructions: NO ALCOHOL NO MARIJUANA OR ANY OTHER DRUGS CLEAR LIQUIDS, SIPS AT A TIME--WATER, BROTH, JELLO, GATORADE TOMORROW IF YOU ARE BETTER, ADD BRATS DIET TO CLEAR LIQUIDS--BANANAS, RICE, APPLESAUCE, TOAST, SALTINES FOLLOW UP WITH DR. NICHOLSON OR DR. ARRINGTON, GENERAL SURGEONS, THIS WEEK FOR FURTHER CARE--CALL IN THE MORNING TO SCHEDULE AN APPOINTMENT Scripts Ondansetron (Ondansetron Odt) 8 Mg Tab.rapdis 8 MG PO Q6H, #10 TAB Prov: TARYN STODDARD DO 04/22/23 Sucralfate (Carafate) 1 Gram Tablet 1 GM PO QID, #60 TAB Prov: TARYN STODDARD DO 04/22/23 Pantoprazole Sodium (Protonix) 40 Mg Tablet. 40 MG PO DAILY, #15 TAB Prov: TARYN STODDARD DO 04/22/23 TARYN STODDARD DO Apr 22, 2023 00:22
[2023-04-22 00:28] LABS: BASOPHILS # (AUTO) 0.1 10^3/uL (0.0-0.1); BASOPHILS % (AUTO) 1 % (0-10); EOSINOPHILS # (AUTO) 0.1 10^3/uL (0.0-0.3); EOSINOPHILS % (AUTO) 1 % (0-10); HEMATOCRIT 46 % (40-54); HEMOGLOBIN 15.4 g/dL (13.3-17.7); LYMPHOCYTES # (AUTO) 3.4 10^3/uL (1.0-4.0); LYMPHOCYTES % (AUTO) 37 % (12-44); MEAN CORPUSCULAR HEMOGLOBIN 28 pg (25-34); MEAN CORPUSCULAR HGB CONC 33 g/dL (32-36); MEAN CORPUSCULAR VOLUME 83 fL (80-99); MEAN PLATELET VOLUME 10.7 fL (9.0-12.2); MONOCYTES # (AUTO) 0.5 10^3/uL (0.0-1.0); MONOCYTES % (AUTO) 5 % (0-12); NEUTROPHILS % (AUTO) 55 % (42-75); PLATELET COUNT 258 10^3/uL (130-400); WHITE BLOOD COUNT 9.1 10^3/uL (4.3-11.0)
[2023-04-22] MEDS ORDERED: PANTOPRAZOLE INJECTION 40 MG VIAL IV ONE (00:30)
[2023-04-22 00:36] LABS: ALBUMIN 4.8 GM/DL (3.2-4.5); CHLORIDE 105 MMOL/L (98-107); POTASSIUM 4.1 MMOL/L (3.6-5.0); SODIUM 139 MMOL/L (135-145)
[2023-04-22 00:37] LABS: CALCIUM 9.6 MG/DL (8.5-10.1)
[2023-04-22 00:39] LABS: GLUCOSE 128 MG/DL (70-105); TOTAL PROTEIN 8.1 GM/DL (6.4-8.2)
[2023-04-22 00:40] LABS: CARBON DIOXIDE 18 MMOL/L (21-32)
[2023-04-22 00:41] LABS: BILIRUBIN,TOTAL 0.3 MG/DL (0.1-1.0)
[2023-04-22 00:42] LABS: ALKALINE PHOSPHATASE 72 U/L (40-136)
[2023-04-22 00:43] LABS: CREATININE SERUM 1.08 MG/DL (0.60-1.30); GFR ESTIMATED 95
[2023-04-22 00:44] LABS: BUN/CREATININE RATIO 10
[2023-04-22 01:13] LABS: ALANINE AMINOTRANSFERASE 96 U/L (0-55); AMYLASE 45 U/L (25-125); LIPASE 28 U/L (8-78); MAGNESIUM 1.7 MG/DL (1.6-2.4)
[2023-04-22] MEDS ORDERED: HOLD METFORMIN - RECEIVED CONTRAST 20 ML VIAL IV SCH (01:15)
[2023-04-22] MEDS ORDERED: NS 100 ML (IVPB) BAG IV ONE (01:15)
[2023-04-22] MEDS ORDERED: IOHEXOL 350 MG/ML 100 ML (OMNIPAQUE 350) VIAL IV ONE (01:15)
[2023-04-22] MEDS ORDERED: ONDA8TAB13 PO (01:42)
[2023-04-22] MEDS ORDERED: SUCR1TAB36 PO (01:42)
[2023-04-22] MEDS ORDERED: PANT40TA2 PO (01:42)
[2023-04-22 01:53] VITALS: BP 116/62
[2023-04-22 01:53] LABS: BILIRUBIN,URINE NEGATIVE (NEGATIVE); CLARITY,URINE CLEAR; COLOR,URINE YELLOW; GLUCOSE, URINE (UA) NEGATIVE (NEGATIVE); KETONES,URINE NEGATIVE (NEGATIVE); LEUKOCYTE ESTERASE ,URINE NEGATIVE (NEGATIVE); NITRITE,URINE NEGATIVE (NEGATIVE); PH,URINE 6.5 (5-9); PROTEIN,URINE TRACE (NEGATIVE)
[2023-04-22 01:54] LABS: BACTERIA,URINE NEGATIVE /HPF; WBC,URINE RARE /HPF
[2023-04-22 01:57] LABS: AMPHETAMINE SCREEN, URINE POSITIVE (NEGATIVE); BARBITURATE SCREEN URINE NEGATIVE (NEGATIVE); CANNABINOID SCREEN, URINE POSITIVE (NEGATIVE); COCAINE SCREEN URINE NEGATIVE (NEGATIVE); METHADONE STAT NEGATIVE (NEGATIVE); OPIATE SCREEN URINE NEGATIVE (NEGATIVE); OXYCODONE STAT NEGATIVE (NEGATIVE); TRICYCLIC ANTIDEPRESSANTS SCRE NEGATIVE (NEGATIVE)
--- NOTE | 2023-04-22 06:19 | Diagnostic Imaging Report ---
PROCEDURE: CT abdomen and pelvis with contrast. TECHNIQUE: Multiple contiguous axial images were obtained through the abdomen and pelvis after administration of intravenous contrast. Auto Exposure Controls were utilized during the CT exam to meet ALARA standards for radiation dose reduction. All CT scans use one or more of the following dose optimizing techniques: automated exposure control, MA and/or KvP adjustment based on patient size and exam type or iterative reconstruction. INDICATION: Nausea and vomiting COMPARISON: None FINDINGS: The lung bases are clear. The heart is normal in size. The liver demonstrates no focal lesions. The spleen appears normal. The pancreas is normal. The adrenal glands appear normal. The kidneys demonstrate no enhancing lesions or hydronephrosis. The bowel loops are nondistended without obstruction. The appendix is normal. There is some fat deposition in the colonic wall. Mild wall thickening may be due to underdistention. No surrounding edema is seen. This may be due to chronic inflammation. There does appear to be a small amount of nondependent air in the bladder, most likely due to instrumentation. IMPRESSION: 1. No acute abnormality is seen in the abdomen and pelvis. 2. Mild fat deposition in the colon, could be due to chronic inflammatory change. 3. Small amount of air in the bladder, likely due to instrumentation. Findings regarding the colon and bladder were not included in the preliminary report, otherwise agree with the preliminary report. These additional findings were communicated to the Emergency Room via the additional findings tracking sheet. Dictated by: Dictated on workstation # [id number]
== END 2023-04-22 01:53 | disposition home or self-care (01) ==
LOC: EDUNIT# 00:04 → ER 00:07
DX: F10.90 Alcohol use, unspecified, uncomplicated (principal); F15.90 Other stimulant use, unspecified, uncomplicated; F12.90 Cannabis use, unspecified, uncomplicated; F17.210 Nicotine dependence, cigarettes, uncomplicated; Z79.51 Long term (current) use of inhaled steroids
CPT/HCPCS: 74177; 80053; 80306; 81000; 82150; 83690; 83735; 85025; 87636; 96361; 96374; 96375; 96376; 99284; G0480; 36415; 80320

== ENCOUNTER 2023-05-02 17:33 | Emergency (ER) | payer MEDICAID ==
[~2023-05-02 17:33] MED LIST changes: +ONDA8TAB13 PO; +PANT40TA2 PO; +SUCR1TAB36 PO
--- NOTE | 2023-05-02 17:50 | ED Back Pain ---
General Chief Complaint: Back Problems Stated Complaint: MID-RT SIDE BACK PAIN - NONTRAUMA, PAINFUL BREATHI Nursing Triage Note: PT AMB TO RM 5 PT CO OF R MIDDLE BACK PAIN STARTED THIS AM. DENIES INJURIES AT THIS X Source of Information: Patient Exam Limitations: No Limitations (MIYA ESCLAERA) History of Present Illness Date Seen by Provider: May 02, 2023 Time Seen by Provider: 17:47 Initial Comments Patient is a 27-year-old male presents ED with right upper back pain. Pain started this morning when he woke up. Sharp pain intermittent. Did take some Tylenol this morning with some very minimal improvement. Pain became worse this afternoon when he moved awkwardly and felt a sharp pain across his upper back. Very sensitive to touch or any sudden change in movement. Pain with use abrasion. Denies of any pain with urination, nausea, vomit, diarrhea, chest pain, shortness of breath, Godfrey pain, headache or dizziness. Denies history of similar symptoms. Pain does not radiate. Denies of any dark urine. Denies history of kidney stones. (MIYA ESCALERA) Allergies and Home Medications Allergies Coded Allergies: No Known Drug Allergies (Unverified , 12/13/22) Patient Home Medication List Home Medication List Reviewed: Yes (MIYA ESCALERA) Cyclobenzaprine HCl (Cyclobenzaprine HCl) 10 Mg Tablet, 10 MG PO TID Prescribed by: ANTHONY FRYE on 05/02/231817 Naproxen (Naproxen) 500 Mg Tablet, 500 MG PO Q12H Prescribed by: ANTHONY FRYE on 05/02/231817 Omeprazole (Omeprazole) 20 Mg Capsule., 20 MG PO DAILY Prescribed by: MIGUELITO PEPPER on 03/30/23607 Ondansetron (Ondansetron Odt) 4 Mg Tab.rapdis, 4 MG PO Q6H PRN for NAUSEA/VOMITING Prescribed by: MIGUELITO PEPPER on 03/30/23607 Ondansetron (Ondansetron Odt) 8 Mg Tab.rapdis, 8 MG PO Q6H Prescribed by: TARYN STODDARD on 04/22/23 0142 Pantoprazole Sodium (Protonix) 40 Mg Tablet., 40 MG PO DAILY Prescribed by: TARYN STODDARD on 04/22/23141 Sucralfate (Carafate) 1 Gram Tablet, 1 GM PO QID Prescribed by: TARYN STODDARD on 04/22/23141 Review of Systems Constitutional: No chills, No diaphoresis EENTM: No ear pain, No blurred vision, No double vision Respiratory: No cough, No dyspnea on exertion Cardiovascular: No chest pain Gastrointestinal: No abdominal pain, No diarrhea, No nausea, No vomiting Genitourinary: No decreased output, No discharge Musculoskeletal: back pain; No joint pain, No joint swelling; muscle pain Skin: No change in color, No change in hair/nails (MIYA ESCALERA) All Other Systems Reviewed Negative Unless Noted: Yes (MIYA ESCALERA) Past Aaatxnn-Lbxjwf-Hfxhcc Hx Patient Social History Tobacco Use?: Yes Tobacco type used: Cigarettes Smoking Status: Current Everyday Smoker Substance use?: Yes Substance type: Marijuana Substance frequency: Once in a while Alcohol Use?: Yes Alcohol type: Beer Alcohol Frequency: Once in a while (MIYA ESCALERA) Immunizations Up To Date First/Initial COVID19 Vaccinat: NA Second COVID19 Vaccination Pardeep: NA Third COVID19 Vaccination Date: NA (MIYA ESCALERA) Past Medical History Surgery/Hospitalization HX: ASTHMA, STOMACH ULCER, THROAT SX. Surgeries: Yes Respiratory: Yes Asthma Cardiac: No Neurological: No Genitourinary: No Gastrointestinal: Yes (CHRONIC NAUSEA/VOMITING) Musculoskeletal: No Endocrine: No HEENT: No Cancer: No Psychosocial: No Integumentary: No Blood Disorders: No (MIYA ESCALERA) Family Medical History SOCIAL HISTORY; -SMOKES 1 PPD -ETOH FREQUENT USE. -DRUGS--SMOKES MARIJUANA ON REGULAR BASIS; UDS + FOR AMPHETAMINES AND METHAMPHETAMINES WELL MARIJUANA 04/22/23 (MIYA ESCALERA) Physical Exam Vital Signs Vital Signs - First Documented 05/02/23 17:40 Temp 36.9 Pulse 83 Resp 18 B/P (MAP) 138/74 (95) Pulse Ox 99 (RAAJNI RASHEED MD) Vital Signs Capillary Refill : Less Than 3 Seconds (MIYA ESCALERA) Height, Weight, BMI Height: '" Weight: lbs. oz. kg; 36.00 BMI Method: General Appearance: No Apparent Distress, WD/WN HEENT: PERRL/EOMI, TMs Normal, Normal ENT Inspection, Pharynx Normal Neck: Full Range of Motion, Normal Inspection, Non Tender, Supple Cardiovascular: Regular Rate, Rhythm, No Edema, No Gallop, No JVD Respiratory: Chest Non Tender, Lungs Clear, Normal Breath Sounds, No Accessory Muscle Use, No Respiratory Distress Gastrointestinal: Normal Bowel Sounds, No Organomegaly, No Pulsatile Mass, Non Tender Back: Other (Right thoracic paraspinal muscle tenderness. No thoracic or lumbar midline tenderness.) Extremity: Normal Capillary Refill, Normal Inspection, Normal Range of Motion, Non Tender Neurologic/Psychiatric: Alert, Oriented x3, No Motor/Sensory Deficits, Normal Mood/Affect, bilingual student tutor II-XII Norm as Tested Skin: Normal Color, Warm/Dry (MIYA ESCALERA) Progress/Results/Core Measures Results/Orders Lab Results Laboratory Tests Test 05/02/23 17:55 Range/Units Urine Color YELLOW Urine Clarity CLEAR Urine pH 6.0 5-9 Urine Specific [place] >=1.030 1.016-1.022 Urine Protein NEGATIVE NEGATIVE Urine Glucose (UA) NEGATIVE NEGATIVE Urine Ketones TRACE H NEGATIVE Urine Nitrite NEGATIVE NEGATIVE Urine Bilirubin NEGATIVE NEGATIVE Urine Urobilinogen 1.0 < = 1.0 MG/DL Urine Leukocyte Esterase NEGATIVE NEGATIVE Urine RBC (Auto) NEGATIVE NEGATIVE Urine RBC NONE /HPF Urine WBC NONE /HPF Urine Squamous Epithelial Cells NONE /HPF Urine Crystals NONE /LPF Urine Bacteria NEGATIVE /HPF Urine Casts NONE /LPF Urine Mucus NEGATIVE /LPF Urine Culture Indicated NO (RAJANI RASHEED MD) Vital Signs/I&O 05/02/23 05/02/23 17:40 18:23 Temp 36.9 36.9 Pulse 83 83 Resp 18 18 B/P (MAP) 138/74 (95) 138/74 Pulse Ox 99 99 (RAJANI RASHEED MD) Blood Pressure Mean: 95 Departure Communication (PCP) Reviewed previous ER visits, H&P, lab testing. Differential diagnosis muscle spasming, nephrolithiasis, pneumonia, pneumothorax. On arrival complaint of right thoracic paraspinal muscle pain. Seems to be worse with movement. Sharp pain without radiation to the chest. No shortness of breath but hurts with any type of movement or deep inspiration. Denies fever chills nausea vomiting, diarrhea, shortness of breath. Patient has significant tenderness on palpation to the right thoracic paraspinal muscle. Did obtain a urinalysis which was negative for hematuria or infection. Chest x-ray was ordered secondary location which was negative for pneumonia, pneumothorax, mediastinal widening. He is not hypertensive or hypoxic. Received Toradol and Norflex with improvement of pain. Suspect that this is more muscle related. At this time recommend anti- inflammatories muscle relaxers ice rest stretching. Follow-up your PCP in 2 to 3 days for reevaluation. If any worsening symptoms return back to ED for further evaluation. (MIYA ESCALERA) Impression Primary Impression: Back pain Disposition: 01 HOME, SELF-CARE Condition: Stable Departure-Patient Inst. Decision time for Depature: 17:49 (MIYA ESCALERA) Referrals: [facility],LOCAL PHYSICIAN (PCP) Primary Care Physician Patient Instructions: Back Muscle Strain (DC) Add. Discharge Instructions: Recommend anti-inflammatories muscle relaxers rest stretching. Return back to ED if symptoms worsen such as developing chest pain or shortness of breath. Follow-up with your PCP in 2 to 3 days for reevaluation. All discharge instructions reviewed with patient and/or family. Voiced understanding. Scripts Naproxen (Naproxen) 500 Mg Tablet 500 MG PO Q12H, #20 TAB Prov: MIYA ESCALERA 05/02/23 Cyclobenzaprine HCl (Cyclobenzaprine HCl) 10 Mg Tablet 10 MG PO TID, #16 TAB Prov: MIYA ESCALERA 05/02/23 Work/School Note: Work Release Form Date Seen in the Emergency Department: May 02, 2023 Return to Work: May 06, 2023 ATTENDING PHYSICIAN NOTE: I was physically present as attending physician in the emergency department during the care of this patient, but I was not directly involved in the decision making or delivery of care for this patient. (RAJANI RASHEED MD) MIYA ESCALERA May 02, 2023 17:50 RAJANI RASHEED MD May 03, 2023 19:02
[2023-05-02] MEDS ORDERED: KETOROLAC INJ 30 MG/ML VIAL IM ONE (18:00)
[2023-05-02] MEDS ORDERED: ORPHENADRINE 60 MG/2 ML AMP (ED ONLY) IM ONE (18:00)
--- NOTE | 2023-05-02 18:07 | Diagnostic Imaging Report ---
PATIENT HISTORY: back pain, sob. TECHNIQUE: Single frontal view of the chest. COMPARISON: 04/10/2023 FINDINGS: The lung volumes are normal. No focal consolidation is seen. No large pleural effusion or pneumothorax is seen. The cardiomediastinal silhouette is normal in size and contour. No acute osseous abnormality is seen. IMPRESSION: No acute pulmonary abnormality seen. Dictated by: Dictated on workstation # [id number]
[2023-05-02 18:08] LABS: BACTERIA,URINE NEGATIVE /HPF; BILIRUBIN,URINE NEGATIVE (NEGATIVE); CLARITY,URINE CLEAR; COLOR,URINE YELLOW; GLUCOSE, URINE (UA) NEGATIVE (NEGATIVE); KETONES,URINE TRACE (NEGATIVE); LEUKOCYTE ESTERASE ,URINE NEGATIVE (NEGATIVE); NITRITE,URINE NEGATIVE (NEGATIVE); PROTEIN,URINE NEGATIVE (NEGATIVE)
[2023-05-02] MEDS ORDERED: CYCL10TA25 PO (18:18)
[2023-05-02] MEDS ORDERED: NAPR-915 PO (18:18)
[2023-05-02 18:23] VITALS: BP 138/74
== END 2023-05-02 18:23 | disposition home or self-care (01) ==
LOC: EDUNIT# 17:33 → ER 17:35
DX: M54.6 Pain in thoracic spine (principal); F17.210 Nicotine dependence, cigarettes, uncomplicated
CPT/HCPCS: 71045; 81000; 96372